=== PATIENT | female | born 1965 | race Caucasian/White ===

== ENCOUNTER 2024-03-22 14:06 | Inpatient (IN) ==
[2024-03-22 15:42] LABS: Basophils # (auto) 0.02 K/uL (0.00-0.20); Basophils % (auto) 0.2 %; Eosinophils # (auto) 0.05 K/uL (0.00-0.50); Eosinophils % (auto) 0.6 %; Hematocrit (blood only) 41.1 % (37.0-47.0); Hemoglobin 14.1 g/dl (12.0-16.0); Immature Granulocytes # (auto) 0.03 K/uL (0.01-0.20); Immature Granulocytes % (auto) 0.3 %; Lymphocytes # (auto) 0.84 K/uL (1.20-3.40); Lymphocytes % (auto) 9.6 %; Mean Corpuscular Hgb Conc 34.3 g/dL (32.0-36.0); Mean Corpuscular Volume 87.4 fL (80.0-100.0); Mean Platelet Volume 10.7 fL (9.4-12.4); Monocytes % (auto) 13.7 %; Neutrophils # (auto) 6.65 K/uL (1.40-6.50); Neutrophils % (auto) 75.6 %; Platelet Count 187 K/uL (130-400); RDW Coefficient of Variation 12.2 % (11.5-14.5); RDW Standard Deviation 39.8 fL (36.4-46.3); White Blood Count 8.79 K/ul (4.8-10.8)
[2024-03-22 15:44] LABS: Albumin Globulin Ratio 1.2 (0.9-2); Albumin Level 4.1 gm/dl (3.4-5.0); BUN Creatinine Ratio 17.1 (10-20); Bilirubin,Total 0.5 mg/dl (0.2-1.0); Calcium 9.6 mg/dl (8.6-10.3); Creatinine Clr Calc Pharmacy 55.7 ml/min; Est GFR (African American) 90.8 ml/min; Est GFR (Non-African American) 78.3 ml/min; Globulin 3.3 gm/dl (2.5-4.0); Potassium 3.6 mmol/L (3.5-5.1); Total Protein 7.4 gm/dl (6.0-8.3)
[2024-03-22 17:11] LABS: Appearance Urine Clear (Clear); Bacteria Urine Automated None Seen (None Seen); Bilirubin Urine Negative (Negative); Blood Urine Trace (Negative); Cast Urine Automated 0-2 /lpf (0-2); Color Urine Yellow; Epithelial Cell Urine Auto 0-2 /hpf (0-2); Glucose Urine UA Negative (Negative); Ketones Urine 3+ (Negative); Leukocyte Esterase Urine 1+ (Negative); Nitrite Urine Negative (Negative); Protein Urine 1+ (Negative); Specific Gravity Urine 1.017 (1.000-1.030); Urobilinogen Urine Negative (Negative); WBC Urine Automated 21-50 /hpf (0-5)
[2024-03-22] MEDS: ERTAPENEM SODIUM 10 ML IV STA (17:33)
[2024-03-22] MEDS: SODIUM CHLORIDE 0.9% 1,000 ML IV ONE (17:38)
[2024-03-22] MEDS: LACTATED RINGER'S 1,000 ML IV ONE (17:38)
[2024-03-22 17:40] LABS: C Reactive Protein 28.3 mg/dl (0-0.5)
--- NOTE | 2024-03-22 17:52 | Emergency Department Note ---
Impression & Plan Pyelonephritis ED Provider Note NAME: CORBIN WATKINS AGE: 58 SEX: F : 1965 ARRIVES VIA: Walk-In INFORMANT: Patient, ED PROVIDER(S): Diego Jose DO CHIEF COMPLAINT: Pyelonephritis HPI: The patient is a 58-year-old female who presented to the emergency department for an evaluation. The patient had a recent diagnosis of pyelonephritis over the weekend. She was seen in our facility for the symptoms. She was called by pharmacy and told to come back because she had an E. coli with ESBL. The patient denies having any nausea or vomiting at this time. She denies having any abdominal pain or back pain. She has no fevers. ROS: See above HPI for pertinent positives & negatives. A total of 10 systems reviewed and were otherwise negative. PAST MEDICAL HISTORY: See Below PAST SURGICAL HISTORY: See Below FAMILY HISTORY: See Below SOCIAL HISTORY: See Below HOME MEDICATIONS: See Below ALLERGIES: See Below VITALS: See Below PHYSICAL EXAMINATION: GENERAL: Patient is awake alert in no acute distress patient is resting comfortably and showing no signs of anxiety EYES: The conjunctivae are clear. The pupils are round and reactive. EARS, NOSE, MOUTH AND THROAT: The nose is without any evidence of any deformity. NECK: The neck is nontender and supple. RESPIRATORY: Normal respiratory effort is noted there is no evidence of wheezing rhonchi or rales CARDIOVASCULAR: Regular rate and rhythm noted there no murmurs rubs or gallops normal S1 normal S2. GASTROINTESTINAL: The abdomen is soft. Abdomen is nontender. SKIN: There is no obvious evidence of any rash. There are no petechiae, pallor or cyanosis noted. NEUROLOGIC: Patient is awake alert and oriented x3 MEDICAL DECISION MAKING: The patient is a 58-year-old female who presented to the emergency department for an evaluation of pyelonephritis. The patient was seen in our facility recently and diagnosed with pyelonephritis. She was started on a course of antibiotics. She was somewhat improved but was told to come back to the emergency department because her culture grew out an E. coli ESBL. The patient was treated with IV antibiotics in emergency department. I did discuss patient's condition with the emergency department pharmacist. They recommended Invanz. The patient did have ketones in her urine. She was treated with IV fluids. Vital signs are reassuring. She does not appear to be septic but given the culture I do feel that she would benefit from inpatient management. I discussed this with the patient and she was agreeable. I discussed her condition with the on-call [facility] hospitalist. They have agreed to evaluate the patient in the emergency department for further management and disposition. I also discussed this case with the emergency department sample case porter. The patient's family would like to try to get the patient arranged for outpatient IV antibiotics as soon as possible. They will try to arrange this in the morning with the inpatient sample case porter. Triage Nursing notes reviewed. Prior medical records reviewed Vital Signs: reviewed and remarkable for no significant abnormalities Differential diagnosis: Renal colic, UTI, appendicitis, diverticulitis, mesenteric ischemia, aortic pathology, infections, inflammatory bowel disease, PUD, biliary pathology, as well as other pathologies. ER treatment provided: See below Diagnostics interpreted by me: ECG: none Cardiac Monitoring: An order was placed for continuous cardiac monitoring. The monitor shows a rate of 72 beats a minute with sinus rhythm. Laboratory studies: As stated above and show below. Imaging studies: See below. Consultation(s): I discussed this case with Dr. Pacheco who is on-call for the [facility] hospitalist group. Past Med/Surg History Problem List (Updated 03/23/24 @ 00:07 by Diego Jose DO) Pyelonephritis (Acute) Pyelonephritis (Acute) Lateral epicondylitis Edema Dyspnea Nontoxic goiter Unspecified asthma Frequent UTI Hematuria Pre-op testing Nephrolithiasis Encounter for pre-operative examination Medical History Environmental and seasonal allergies History of asthma HX MENOPAUSE INDUCED / RESOLVED. Family history of reaction to anesthesia SISTER AND BROTHER - N/V. History of sepsis 12 YR AGO DUE TO UNKNOWN UTI. Frequent UTI DENIES CURRENT S/S. Kidney stones Surgical History History of tonsillectomy History of hysterectomy OVARIES REMAIN. History of endoscopy History of colonoscopy Family History Mother Family history of diabetes mellitus Social History Smoking Status: Never smoker Second Hand Exposure: No; Do You Dip or Chew Tobacco: No; Hx Alcohol Use: Yes Alcohol type: beer and hard liquor Hx Substance Use: No Preferred Language: Icelandic Communication Ability: Effective Maintenance Mechanic Helper Required: No Beliefs That Will Affect Care: None Current Living Situation: Alone Other Information That Helps Us Care for You: No Feels Safe at Home: Yes Safety Concerns: Feels Safe At This Time Assistive Devices: Glasses Allergies Allergies Allergy/AdvReac Type Severity Reaction Status Date / Time No Known Allergies Allergy Verified 09/17/23 08:50 Home Meds Home Medications Medication Instructions Recorded Confirmed Pro [place] D3 1 tab PO QAM 05/28/23 03/03/24 cetirizine 10 mg capsule (Zyrtec) 10 mg PO DAILY PRN Allergy Symptoms 05/28/23 03/03/24 cyanocobalamin (vitamin B-12) 50 50 mcg PO DAILY 05/28/23 03/03/24 mcg tablet (Vitamin B-12) loratadine 10 mg tablet (Claritin) 10 mg PO DAILY PRN Allergy Symptoms 05/28/23 03/03/24 Previous Rx's Medication Instructions Recorded sulfamethoxazole 800 1 tab PO BID #14 tabs 03/01/24 mg-trimethoprim 160 mg tablet (Bactrim DS) cefdinir 300 mg capsule 300 mg PO BID 7 days #14 caps 03/20/24 ondansetron 4 mg disintegrating 4 mg PO Q8H PRN nausea and 03/20/24 tablet vomiting #30 tabs Results & Data (ED) Vital Signs Vital Signs - 24 hr 03/22/24 14:24 03/22/24 18:18 Temperature 36.5 C Temperature Source Temporal Artery Scan Pulse Rate 74 Pulse Rate [Right Finger] 76 Respiratory Rate 16 18 Respiratory Effort / Characteristics Non-Labored Spontaneous Non-Labored Spontaneous Respiratory Depth Normal Normal Respiratory Pattern Regular Regular Blood Pressure 106/51 L Blood Pressure [Right Arm] 120/69 Blood Pressure Mean 69 Blood Pressure Mean [Right Arm] 86 Blood Pressure Position Sitting Pulse Oximetry 97 99 Oxygen Delivery Method Room Air Room Air Sepsis Recent Fever Within 48 Hours No Sepsis New/Unexplained Change in Mental Status No Sepsis Action Taken by Nursing No Action Required Home Medications Current Medication List: was personally reviewed by me Laboratory Data Attestation: I reviewed the patient's lab results. 03/22/24 15:11 03/22/24 15:11 Lab Results 03/22/24 Range/Units 15:11 WBC 8.79 (4.8-10.8) K/ul RBC 4.70 (4.20-5.40) M/uL Hgb 14.1 (12.0-16.0) g/dl Hct 41.1 (37.0-47.0) % MCV 87.4 (80.0-100.0) fL MCH 30.0 (25.0-34.0) pg MCHC 34.3 (32.0-36.0) g/dL RDW Std Deviation 39.8 (36.4-46.3) fL RDW Coeff of Ruth Ann 12.2 (11.5-14.5) % Plt Count 187 (130-400) K/uL MPV 10.7 (9.4-12.4) fL Immature Gran % (Auto) 0.3 % Neut % (Auto) 75.6 % Lymph % (Auto) 9.6 % [place] % (Auto) 13.7 % Eos % (Auto) 0.6 % Baso % (Auto) 0.2 % Neut # (Auto) 6.65 H (1.40-6.50) K/uL Lymph # (Auto) 0.84 L (1.20-3.40) K/uL [place] # (Auto) 1.20 H (0.11-0.59) K/uL Eos # (Auto) 0.05 (0.00-0.50) K/uL Baso # (Auto) 0.02 (0.00-0.20) K/uL Immature Gran # (Auto) 0.03 (0.01-0.20) K/uL Sodium 139 (136-145) mmol/L Potassium 3.6 (3.5-5.1) mmol/L Chloride 103 (98-107) mmol/L Carbon Dioxide 25 (21-32) mmol/L Anion Gap 11 (3-11) BUN 14 (6-23) mg/dl Creatinine 0.82 (0.6-1.2) mg/dl Est Cr Clr Drug Dosing 55.7 ml/min Est GFR ( Amer) 90.8 ml/min Est GFR (Non-Af Amer) 78.3 ml/min BUN/Creatinine Ratio 17.1 (10-20) Glucose 83 (70-99(Fasting)) mg/dl Calcium 9.6 (8.6-10.3) mg/dl Total Bilirubin 0.5 (0.2-1.0) mg/dl AST 15 (13-39) U/L ALT 16 (7-52) U/L Alkaline Phosphatase 105 H (34-104) U/L C-Reactive Protein 28.30 H (0-0.5) mg/dl Total Protein 7.4 (6.0-8.3) gm/dl Albumin 4.1 (3.4-5.0) gm/dl Globulin 3.3 (2.5-4.0) gm/dl Albumin/Globulin Ratio 1.2 (0.9-2) Procalcitonin 0.50 (0-0.5) ng/ml Administered Medications Lactated Ringer's (Lr) 1,000 mls @ 100 mls/hr IV .Q10H GISELA Stop: 03/23/24 17:42 Last Admin: 03/22/24 22:17 Dose: 100 mls/hr Documented By: RIMA Discontinued Medications Ertapenem (Invanz) 10 mls @ 2 mls/min IV NOW STA Stop: 03/22/24 17:23 Last Admin: 03/22/24 17:33 Dose: 2 mls/min Documented By: STEVE Sodium Chloride (Nss) 1,000 mls @ 999 mls/hr IV .Q1H1M ONE Stop: 03/22/24 18:19 Last Infusion: 03/22/24 20:32 Dose: Infused Documented By: [facility] Admin: 03/22/24 17:38 Dose: 999 mls/hr Documented By: STEVE Lactated Ringer's (Lr) 1,000 mls @ 999 mls/hr IV .Q1H1M ONE Stop: 03/22/24 18:19 Last Infusion: 03/22/24 20:32 Dose: Infused Documented By: [facility] Admin: 03/22/24 17:38 Dose: 999 mls/hr Documented By: STEVE Ibuprofen (Ibuprofen 600 Mg Tab) 600 mg PO NOW STA Stop: 03/22/24 19:05 Last Admin: 03/22/24 19:26 Dose: 600 mg Documented By: [facility] Discharge Plan Visit Data Chief Complaint: Urinary Symptoms Stated Complaint: REF BY , UTI, HEADACHE, LETHARGIC, FEVER ED Provider: Diego Jose Discharge Problem: Pyelonephritis Patient Disposition: Admitted As Inpatient Discharge Instructions Interventions: ED Discharge Assessment Last Done: 03/22/24 21:09
[2024-03-22] MEDS: IBUPROFEN 600 MG TAB PO STA (19:26)
--- NOTE | 2024-03-22 20:08 | History & Physical Report ---
Date of Service March 22, 2024 Assessment & Plan (1) UTI (urinary tract infection): Plan: 58yto female with history of nephrolithiasis, recurrent UTIs presenting with ESBL E.coli UTI. Patient is afebrile, HD stable and non-toxic in appearance. Her UA does suggest infection. Elevated CRP. Urine culture from 03/20/24 with E. Coli (Sn to Ertapenem, Gentamicin, Meropenem, Nitrofurantoin and Pip/Tazo). Patient reports recently being on Nitrofurantoin for these symptoms. -Admit to medical -Maintain isolation precautions for ESBL bacteria -Repeat culture sent from the ER -Continue Ertapenem -Case management consultation appreciated for arrangement of outpatient IV antibiotics -Continue LR at 100mL/hr x 2 liters -Tylenol as needed -Zofran as needed Plan F/E/N - LR at 100mL/hr x 2L, electrolytes WNL, Regular diet as tolerated Ppx- low risk for DVT Code - Full Dispo - Admit to medical History of Present Illness Chief Complaint: ESBL UTI Primary Care Provider: Gisselle Feliciano MD Nora Butt is a pleasant 58yo female with frequent UTIs presenting with ESBL E. coli UTI. Patient was seen in the ER on 03/20/24 with complaint of ongoing urinary symptoms - dysuria, hematuria, nausea and vomiting. She was previously diagnosed with a UTI and had taken Bactrim and Macrobid with no improvement in symptoms. Patient's UA suggestive of infection. She had a CT of the abdomen which showed numerous 2-4mm nonobstructing stones in the kidneys bilaterally with no ureteral stone or hydronephrosis - some ureteral thickening possibly due to infection. Patient was given IVF, Toradol, Zofran and Ceftriaxone in the ER and was ultimately discharged on Cefdinir. Her urine culture obtained during that ER visit was POSITIVE for ESBL E. Coli. She was notified by the ER to return for IV treatment. Patient endorses ongoing back pain although somewhat improved. She has chills and nausea as well but they have overall improved. ER Course: Ertapenem NSS x 1L LR x 1L Ibuprofen 600mg Allergies Allergy/AdvReac Type Severity Reaction Status Date / Time No Known Allergies Allergy Verified 09/17/23 08:50 Home Medications Medication Instructions Recorded Confirmed Type Pro [place] D3 1 tab PO QAM 05/28/23 03/03/24 History cetirizine 10 mg capsule (Zyrtec) 10 mg PO DAILY PRN Allergy Symptoms 05/28/23 03/03/24 History cyanocobalamin (vitamin B-12) 50 50 mcg PO DAILY 05/28/23 03/03/24 History mcg tablet (Vitamin B-12) loratadine 10 mg tablet (Claritin) 10 mg PO DAILY PRN Allergy Symptoms 05/28/23 03/03/24 History sulfamethoxazole 800 1 tab PO BID #14 tabs 03/01/24 03/03/24 Rx mg-trimethoprim 160 mg tablet (Bactrim DS) cefdinir 300 mg capsule 300 mg PO BID 7 days #14 caps 03/20/24 Rx ondansetron 4 mg disintegrating 4 mg PO Q8H PRN nausea and 03/20/24 Rx tablet vomiting #30 tabs Past Med/Surg History Problem List (Updated 03/23/24 @ 00:22 by Gabriella Pacheco DO) UTI (urinary tract infection) Pyelonephritis (Acute) Pyelonephritis (Acute) Lateral epicondylitis Edema Dyspnea Nontoxic goiter Unspecified asthma Frequent UTI Hematuria Pre-op testing Nephrolithiasis Encounter for pre-operative examination Medical History Environmental and seasonal allergies History of asthma HX MENOPAUSE INDUCED / RESOLVED. Family history of reaction to anesthesia SISTER AND BROTHER - N/V. History of sepsis 12 YR AGO DUE TO UNKNOWN UTI. Frequent UTI DENIES CURRENT S/S. Kidney stones Surgical History History of tonsillectomy History of hysterectomy OVARIES REMAIN. History of endoscopy History of colonoscopy Family History Mother Family history of diabetes mellitus Social History Smoking Status: Never smoker Second Hand Exposure: No; Do You Dip or Chew Tobacco: No; Hx Alcohol Use: Yes Alcohol type: beer and hard liquor Hx Substance Use: No Preferred Language: Greenlandic Communication Ability: Effective Blood Bank Custodian Required: No Beliefs That Will Affect Care: None Current Living Situation: Alone Other Information That Helps Us Care for You: No Feels Safe at Home: Yes Safety Concerns: Feels Safe At This Time Assistive Devices: Glasses Review of Systems Review of Systems: All systems reviewed & are unremarkable except as noted in HPI & below Physical Exam Physical Exam: General: patient resting comfortably, NAD, non-toxic in appearance, AA&O x 4 Skin: warm, dry, intact, no rashes or lesions HEENT: NC/AT, PERRL, EOMI, anicteric sclera, conjunctiva without injection, external ear normal to inspection and nontender, nares patent, moist mucus membranes, dentition intact, no oropharyngeal lesions, neck supple, trachea m idline, no LAD, no thyromegaly, no JVD Heart: +S1/S2, regular, no m/r/g Lungs: equal air entry bilaterally, no rales/rhonchi/wheezes Abd: +BS, soft, NT/ND, no masses/organomegaly/ascites, mild left sided CVA tenderness Ext: warm, 2+ pulses in UE/LE bilaterally, no clubbing/cyanosis or edema Neuro: nonfocal, patient AA&O x 4, speech intact, no facial droop, moving all extremities on command with equal strength 5/5 Results & Data Results & Data Vital Signs (Past 12 Hours) Vital Signs Temp Pulse Pulse Resp BP BP Pulse Ox 03/22/24 18:18 76 18 120/69 99 03/22/24 14:24 36.5 C 74 16 106/51 L 97 O2 Del Method 03/22/24 18:18 Room Air 03/22/24 14:24 Room Air Laboratory Results Laboratory Results WBC 8.79 K/ul (4.8-10.8) 03/22/24 15:11 RBC 4.70 M/uL (4.20-5.40) 03/22/24 15:11 Hgb 14.1 g/dl (12.0-16.0) 03/22/24 15:11 Hct 41.1 % (37.0-47.0) 03/22/24 15:11 MCV 87.4 fL (80.0-100.0) 03/22/24 15:11 MCH 30.0 pg (25.0-34.0) 03/22/24 15:11 MCHC 34.3 g/dL (32.0-36.0) 03/22/24 15:11 RDW Std Deviation 39.8 fL (36.4-46.3) 03/22/24 15:11 RDW Coeff of Ruth Ann 12.2 % (11.5-14.5) 03/22/24 15:11 Plt Count 187 K/uL (130-400) 03/22/24 15:11 MPV 10.7 fL (9.4-12.4) 03/22/24 15:11 Immature Gran % (Auto) 0.3 % 03/22/24 15:11 Neut % (Auto) 75.6 % 03/22/24 15:11 Lymph % (Auto) 9.6 % 03/22/24 15:11 [place] % (Auto) 13.7 % 03/22/24 15:11 Eos % (Auto) 0.6 % 03/22/24 15:11 Baso % (Auto) 0.2 % 03/22/24 15:11 Neut # (Auto) 6.65 K/uL (1.40-6.50) H 03/22/24 15:11 Lymph # (Auto) 0.84 K/uL (1.20-3.40) L 03/22/24 15:11 [place] # (Auto) 1.20 K/uL (0.11-0.59) H 03/22/24 15:11 Eos # (Auto) 0.05 K/uL (0.00-0.50) 03/22/24 15:11 Baso # (Auto) 0.02 K/uL (0.00-0.20) 03/22/24 15:11 Immature Gran # (Auto) 0.03 K/uL (0.01-0.20) 03/22/24 15:11 Sodium 139 mmol/L (136-145) 03/22/24 15:11 Potassium 3.6 mmol/L (3.5-5.1) 03/22/24 15:11 Chloride 103 mmol/L (98-107) 03/22/24 15:11 Carbon Dioxide 25 mmol/L (21-32) 03/22/24 15:11 Anion Gap 11 (3-11) 03/22/24 15:11 BUN 14 mg/dl (6-23) 03/22/24 15:11 Creatinine 0.82 mg/dl (0.6-1.2) 03/22/24 15:11 Est Cr Clr Drug Dosing 55.7 ml/min 03/22/24 15:11 Est GFR ( Amer) 90.8 ml/min 03/22/24 15:11 Est GFR (Non-Af Amer) 78.3 ml/min 03/22/24 15:11 BUN/Creatinine Ratio 17.1 (10-20) 03/22/24 15:11 Glucose 83 mg/dl (70-99(Fasting)) 03/22/24 15:11 Calcium 9.6 mg/dl (8.6-10.3) 03/22/24 15:11 Total Bilirubin 0.5 mg/dl (0.2-1.0) 03/22/24 15:11 AST 15 U/L (13-39) 03/22/24 15:11 ALT 16 U/L (7-52) 03/22/24 15:11 Alkaline Phosphatase 105 U/L (34-104) H 03/22/24 15:11 C-Reactive Protein 28.30 mg/dl (0-0.5) H 03/22/24 15:11 Total Protein 7.4 gm/dl (6.0-8.3) 03/22/24 15:11 Albumin 4.1 gm/dl (3.4-5.0) 03/22/24 15:11 Globulin 3.3 gm/dl (2.5-4.0) 03/22/24 15:11 Albumin/Globulin Ratio 1.2 (0.9-2) 03/22/24 15:11 Procalcitonin 0.50 ng/ml (0-0.5) 03/22/24 15:11 Urine Color Yellow 03/22/24 Unknown Urine Appearance Clear (Clear) 03/22/24 Unknown Urine pH 6.0 (4.5-7.5) 03/22/24 Unknown Ur Specific [place] 1.017 (1.000-1.030) 03/22/24 Unknown Urine Protein 1+ (Negative) H 03/22/24 Unknown Urine Glucose (UA) Negative (Negative) 03/22/24 Unknown Urine Ketones 3+ (Negative) H 03/22/24 Unknown Urine Blood Trace (Negative) H 03/22/24 Unknown Urine Nitrite Negative (Negative) 03/22/24 Unknown Urine Bilirubin Negative (Negative) 03/22/24 Unknown Urine Urobilinogen Negative (Negative) 03/22/24 Unknown Ur Leukocyte Esterase 1+ (Negative) H 03/22/24 Unknown Urine WBC (Auto) 21-50 /hpf (0-5) H 03/22/24 Unknown Urine RBC (Auto) 6-10 /hpf (0-2) H 03/22/24 Unknown U Hyaline Cast (Auto) 0-2 /lpf (0-2) 03/22/24 Unknown U Epithel Cells (Auto) 0-2 /hpf (0-2) 03/22/24 Unknown Urine Bacteria (Auto) None Seen (None Seen) 03/22/24 Unknown PG Care Time/CCT Total # of Minutes Spent Total Time Spent with Patient: Total time spent is greater than 50% in coordination of care (as documented) at patient's floor/unit and/or counseling patient: Coding Level of Care Code 40639 INT INP/OBS CARE 2/55MIN Diagnoses UTI (urinary tract infection) N39.0
[2024-03-22] MEDS ORDERED: ONDANSETRON INJ 2 MG/ML 2 ML VIAL IV PRN (21:43)
[2024-03-22] MEDS: LACTATED RINGER'S 1,000 ML IV SCH (22:17)
[2024-03-23 06:49] LABS: Hematocrit (blood only) 33.1 % (37.0-47.0); Hemoglobin 11.3 g/dl (12.0-16.0); Mean Corpuscular Hemoglobin 29.7 pg (25.0-34.0); Mean Corpuscular Hgb Conc 34.1 g/dL (32.0-36.0); Mean Corpuscular Volume 86.9 fL (80.0-100.0); Mean Platelet Volume 10.8 fL (9.4-12.4); Platelet Count 153 K/uL (130-400); RDW Coefficient of Variation 12.2 % (11.5-14.5); RDW Standard Deviation 39.7 fL (36.4-46.3); Red Blood Count 3.81 M/uL (4.20-5.40)
[2024-03-23 07:07] LABS: BUN Creatinine Ratio 18.8 (10-20); Calcium 8.4 mg/dl (8.6-10.3); Creatinine Clr Calc Pharmacy 71.4 ml/min; Est GFR (African American) 113.2 ml/min; Est GFR (Non-African American) 97.7 ml/min
[2024-03-23] MEDS: ACETAMINOPHEN 325 MG TAB PO PRN (08:03)
--- NOTE | 2024-03-23 09:19 | Infectious Disease Consult ---
Date of Consultation March 23, 2024 Assessment & Plan (1) Pyelonephritis: Plan Problems: #ESBL E coli pyelonephritis #Nephrolithiasis Micro: 03/22 UCx: pending 03/20 UCx: ESBL E coli (S erta, gent, parisa, nitrofurantoin. R cipro, levo, TMP/SMX) 03/03 UCx: E coli (quintero-sensitive) Abx: Ertapenem 03/22 - present Impression: 58 yo F with history of nephrolithiasis, recurrent UTIs who was admitted on 03/22 with ESBL E coli pyelonephritis. Initially presented to ED on 03/20 with ongoing urinary symptoms of dysuria, hematuria, nausea, vomiting, after being treated as outpatient with Bactrim and Macrobid without improvement. She was afebrile, VSS. Labs showed WBC 11.03, Cr 1, UA with >[address] AP wo contrast showed numerous 2-4 mm nonobstructing stones in the kidneys bilaterally, no ureteral stone or hydronephrosis. Urothelial thickening R>L which could be related to infection. Perinephric fat stranding R>L. She was given ceftriaxone in the ED, and based on prior urine cultures growing quintero-sensitive E coli, she was discharged with cefdinir 300 mg PO BID x 7 days. On 03/22, she was advised to return to the ED when UCx grew ESBL E coli. On return to the hospital, she was still afebrile, with WBC 8.79. She was started on ertapenem and admitted. Recommendations: - Continue ertapenem 1 g IV q24h to complete a 7 day course through 03/28/24. Can be given through a midline given short course of IV antibiotics - No need for weekly lab monitoring, given the short course of IV antibiotics Will sign off. Please page [facility] or contact me through [employer] with further questions. Consultation Information This patient recommendation is based on a telemedicine consult request which was completed asynchronously through chart review and information provided by the primary physician. The patient was not seen or examined today. The evaluation is consultative in nature and all patient care and treatment decisions can either be accepted or rejected by the patient's primary hospital-based treating physician using their own independent medical judgment for their patient. Chisel Worker contact information: Please call [facility] . (Phone Number For Physician Use Only) Time Spent Reviewing Chart: 31+ minutes History of Present Illness Reason for Consultation: ESBL UTI Attending Physician: Lance Izquierdo DO History of Present Illness 58 yo F with history of nephrolithiasis, recurrent UTIs who initially presented to the ED on 03/20 with ongoing urinary symptoms of dysuria, hematuria, nausea, vomiting. She was recently diagnosed with a UTI and was prescribed Bactrim and Macrobid without improvement. She was afebrile, VSS. Labs showed WBC 11.03, Cr 1, UA with >[address] AP wo contrast showed numerous 2-4 mm nonobstructing s tones in the kidneys bilaterally, no ureteral stone or hydronephrosis. Urothelial thickening R>L which could be related to infection. Perinephric fat stranding R>L. She was noted to have R sided CVA tenderness. She was given ceftriaxone in the ED, and based on prior urine cultures growing quintero-sensitive E coli, she was discharged with cefdinir 300 mg PO BID x 7 days. On 03/22, she was advised to return to the ED when UCx grew ESBL E coli. On return to the hospital, she was still afebrile, with WBC 8.79. She denied nausea, vomiting, fevers, back pain, abdominal pain. She was started on ertapenem and admitted. Allergies Allergy/AdvReac Type Severity Reaction Status Date / Time No Known Allergies Allergy Verified 09/17/23 08:50 Home Medications Medication Instructions Recorded Confirmed Type Pro [place] D3 1 tab PO QAM 05/28/23 03/03/24 History cetirizine 10 mg capsule (Zyrtec) 10 mg PO DAILY PRN Allergy Symptoms 05/28/23 03/03/24 History cyanocobalamin (vitamin B-12) 50 50 mcg PO DAILY 05/28/23 03/03/24 History mcg tablet (Vitamin B-12) loratadine 10 mg tablet (Claritin) 10 mg PO DAILY PRN Allergy Symptoms 05/28/23 03/03/24 History sulfamethoxazole 800 1 tab PO BID #14 tabs 03/01/24 03/03/24 Rx mg-trimethoprim 160 mg tablet (Bactrim DS) cefdinir 300 mg capsule 300 mg PO BID 7 days #14 caps 03/20/24 Rx ondansetron 4 mg disintegrating 4 mg PO Q8H PRN nausea and 03/20/24 Rx tablet vomiting #30 tabs Patient History Medical History Environmental and seasonal allergies History of asthma HX MENOPAUSE INDUCED / RESOLVED. Family history of reaction to anesthesia SISTER AND BROTHER - N/V. History of sepsis 12 YR AGO DUE TO UNKNOWN UTI. Frequent UTI DENIES CURRENT S/S. Kidney stones Surgical History History of tonsillectomy History of hysterectomy OVARIES REMAIN. History of endoscopy History of colonoscopy Family History Mother Family history of diabetes mellitus Social History Smoking Status: Never smoker Second Hand Exposure: No; Do You Dip or Chew Tobacco: No; Hx Alcohol Use: Yes Alcohol type: beer and hard liquor Hx Substance Use: No Preferred Language: Bulgarian Communication Ability: Effective Drawing In Hand Required: No Beliefs That Will Affect Care: None Current Living Situation: Alone Other Information That Helps Us Care for You: No Feels Safe at Home: Yes Safety Concerns: Feels Safe At This Time Assistive Devices: Glasses Review of System Pt was not seen Physical Exam Physical Exam: Pt was not seen Results & Data Vital Signs (Past 12 Hours) Vital Signs Temp Pulse Resp BP Pulse Ox O2 Del Method 03/23/24 08:15 Room Air 03/23/24 08:02 37.0 C 68 16 115/71 95 Room Air 03/22/24 22:14 Room Air 03/22/24 21:45 36.8 C 72 16 113/73 94 Room Air Laboratory Results Short CBC 03/22/24 03/23/24 Range/Units 15:11 06:13 WBC 8.79 6.50 (4.8-10.8) K/ul Hgb 14.1 11.3 L (12.0-16.0) g/dl Hct 41.1 33.1 L (37.0-47.0) % Plt Count 187 153 (130-400) K/uL BMP 03/22/24 03/23/24 15:11 06:13 Sodium 139 143 Potassium 3.6 4.0 Chloride 103 109 H Carbon Dioxide 25 27 BUN 14 12 Creatinine 0.82 0.64 Glucose 83 86 Calcium 9.6 8.4 L Liver Function 03/22/24 Range/Units 15:11 Total Bilirubin 0.5 (0.2-1.0) mg/dl AST 15 (13-39) U/L ALT 16 (7-52) U/L Alkaline Phosphatase 105 H (34-104) U/L Albumin 4.1 (3.4-5.0) gm/dl Urine 03/22/24 Range/Units Unknown Urine Color Yellow Urine Appearance Clear (Clear) Urine pH 6.0 (4.5-7.5) Ur Specific [place] 1.017 (1.000-1.030) Urine Protein 1+ H (Negative) Urine Glucose (UA) Negative (Negative) Medications Administered Current Inpatient Medications Acetaminophen (Acetaminophen 325 Mg Tab) 650 mg PO Q4H PRN PRN Reason: Pain or Fever Stop: 04/21/24 21:42 Last Admin: 03/23/24 08:03 Dose: 650 mg Ertapenem 1,000 mg/ Syringe 10 mls @ 2 mls/min IV Q24H GISELA Stop: 04/02/24 17:59 Lactated Ringer's (Lr) 1,000 mls @ 100 mls/hr IV .Q10H GISELA Stop: 03/23/24 17:42 Last Admin: 03/23/24 08:02 Dose: 100 mls/hr Ondansetron HCl (Ondansetron Inj 2 Mg/Ml 2 Ml Vial) 4 mg IV Q6H PRN PRN Reason: Nausea And Vomiting Stop: 04/21/24 21:42
--- NOTE | 2024-03-23 15:14 | Discharge Summary ---
Discharge Summary Date of Service March 23, 2024 Principal Dx & Hospital Course #1 = Principal Diagnosis (1) UTI (urinary tract infection): 58 yo female with history of nephrolithiasis, recurrent UTIs presenting with ESBL E.coli UTI. -Urine culture from 03/20/24 with E. Coli (Sn to Ertapenem, Gentamicin, Meropenem, Nitrofurantoin and Pip/Tazo). -Patient reports recently being on Nitrofurantoin for these symptoms prior to culture results. -Isolation precautions for ESBL bacteria -ID consulted: Complete Ertapenem through 03/28/24. Cleared for DC from an ID perspective. Can administer from a midline. -Patient had a Midline IV placed for outpatient continuation of antibiotics -Case management arranged for IV abx to be delivered to patient's home for home administration -Received 2 doses while inpatient -Patient's partner is an anesthesiologist who is willing to help patient with administration. She was given full training on IV medication administration so that she can preform herself as well. -Patient expressed clear ability and desire for home infusion. Eager for DC home. -Patient to have repeat labs preformed by her PCP once completed. Notes For Next Care Provider Patient presented for UTI after being notified she had a resistant UTI. ID was consulted and ertapenem was recommended. Per ID can complete 7 days total to complete on 03/28/24. IV midline was placed. Patient was trained on IV medication admin. Patient's partner is an anesthesiologist who is willing to help her was IV medical lab scientist. Patient needs to follow with her PCP. Medication Changes From Visit Ertapenem Admission HPI Per Admitting Provider Nora Butt is a pleasant 58yo female with frequent UTIs presenting with ESBL E. coli UTI. Patient was seen in the ER on 03/20/24 with complaint of ongoing urinary symptoms - dysuria, hematuria, nausea and vomiting. She was previously diagnosed with a UTI and had taken Bactrim and Macrobid with no improvement in symptoms. Patient's UA suggestive of infection. She had a CT of the abdomen which showed numerous 2-4mm nonobstructing stones in the kidneys bilaterally with no ureteral stone or hydronephrosis - some ureteral thickening possibly due to infection. Patient was given IVF, Toradol, Zofran and Ceftriaxone in the ER and was ulti mately discharged on Cefdinir. Her urine culture obtained during that ER visit was POSITIVE for ESBL E. Coli. She was notified by the ER to return for IV treatment. Patient endorses ongoing back pain although somewhat improved. She has chills and nausea as well but they have overall improved. ER Course: Ertapenem NSS x 1L LR x 1L Ibuprofen 600mg Discharge Exam General: The patient is awake, alert and oriented 3, well developed and well nourished. HEENT--PERRL, EOMI, mucous membranes and oropharynx mildly dry Neck--On neck collar Heart--normal S1 and S2. No murmurs, rubs or gallops. Lungs--clear bilaterally, no respiratory distress, no accessory muscle use. Abdomen--normal bowel sounds and soft. Extremities--no cyanosis or clubbing. No edema. Dermatologic--normal skin turgor, normal color, no abnormal lymph nodes, no rash. Neurologic--cranial nerves II through XII grossly intact.Coarse tremors Rheumatologic--normal range of motion. Psychiatric--normal affect. Discharge Plan Discharge Items Patient Disposition: Home - Self-Care Reason For Visit: ESBL UTI Discharge Diagnosis: UTI with resistance organism Activity: Resume your previous activity Non-emergency contact: Primary Care Provider Call non-emergency contact if: you have any medication questions, your symptoms worsen, your pain is unusual for you and you have a fever Follow-up/Referrals: Gisselle Feliciano MD [Primary Care Provider] - Diet: Regular Addtl Attending Provider Instructions: Please complete antibiotics as described. Please follow up with your primary provider. Pending Studies at Discharge: No Stand-Alone Forms: My [employer], Smoking Cessation Medications and DC Order Prescriptions: Continued Vitamin B-12 50 mcg Tablet 50 mcg PO DAILY loratadine [Claritin] 10 mg Tablet 10 mg PO DAILY PRN (Reason: Allergy Symptoms) Zyrtec 10 mg Capsule 10 mg PO DAILY PRN (Reason: Allergy Symptoms) Pro [place] D3 1 tab PO QAM ondansetron 4 mg tablet,disintegrating 4 mg PO Q8H PRN (Reason: nausea and vomiting) Qty: 30 0RF Discontinued sulfamethoxazole-trimethoprim [Bactrim DS] 800-160 mg tablet 1 tab PO BID Qty: 14 0RF cefdinir 300 mg capsule 300 mg PO BID 7 Days Qty: 14 0RF Discharge Orders: Discharge Order (Routine); Ordered 03/23/24 Ordered By: Lance Fry/Other Patient Handouts: Urinary Tract Infections in Women Admission Data Admit Date/Time: 03/22/24 20:08 Attending Provider: Lance Izquierdo Admit Provider: Gabriella Pacheco Primary Care Provider: Gisselle Feliciano Other Providers: Gabriella Pacheco; Vivien Hancock; Vickie Baires; Balbina Calix; Akin Kovacs; [place]; Luna Quiroga; Nash,Fax Other Interventions: Discharge Summary Assessment (RN) Last Done: 03/23/24 16:18 Hospital Stay Data Consultations 03/22/24 19:22 ED Decision to Admit Stat 03/23/24 07:01 Consult Infectious Diseases Routine Pending Results Patient Have Any Pending Studies at Discharge: No Discharge Instructions Given to Patient (Per Discharging Provider) Please complete antibiotics as described. Please follow up with your primary provider. Total Time Total Time Spent Total Time Spent (In Minutes): >45 minutes Coding Level of Care Code 11147 INP/OBS DISCH >30 MIN Diagnoses UTI (urinary tract infection) N39.0
[2024-03-23] MEDS: ERTAPENEM SODIUM 1,000 MG in SYRINGE 0 ML IV SCH (16:56)
== END 2024-03-23 17:16 | disposition home or self-care (01) | DRG 690 ==
LOC: ED 14:06 → SUATTDRO 20:08 → 3E 20:08